=== PATIENT | male | born 1940 | race Caucasian/White ===

== ENCOUNTER 2018-01-14 12:53 | Emergency (ER) | payer MEDICARE, OTHER ==
[~2018-01-14] VITALS: Ht 185.4 cm; Wt 60.0 kg
[~2018-01-14 12:53] MED LIST: ALBU8HFA PO; LEVO500T2 PO; VARE0.5T PO
[2018-01-14 13:02] VITALS: BP 164/92
[2018-01-14] MEDS ORDERED: TRIA15CR61 TOP (13:42)
[2018-01-14] MEDS ORDERED: SULF1TAB49 PO (13:42)
== END 2018-01-14 14:08 | disposition home or self-care (01) ==
LOC: ER 12:54
DX: L72.3 Sebaceous cyst (principal); F42.4 Excoriation (skin-picking) disorder; Z88.6 Allergy status to analgesic agent; Z79.899 Other long term (current) drug therapy
CPT/HCPCS: 99283